=== PATIENT | male | born 1975 | race African-American/Black ===

== ENCOUNTER 2016-10-02 18:55 | Emergency (ER) | payer OTHER ==
[~2016-10-02] VITALS: Ht 185.4 cm; Wt 67.2 kg
[~2016-10-02 18:55] MED LIST: NOHOMEMEDS; PEN-VEE K,VEET500 MG PO; VITAMIN D2000 UNIT PO
[2016-10-02 19:03] VITALS: BP 114/80
[2016-10-02] MEDS ORDERED: PREDNISONE10 M1 PO (20:30)
[2016-10-02] MEDS ORDERED: MOBIC7.5 MG PO (20:30)
== END 2016-10-02 20:51 | disposition home or self-care (01) ==
LOC: RME 18:55 → EME 18:55 → RME 20:51
DX: M46.1 Sacroiliitis, not elsewhere classified (principal); Z88.0 Allergy status to penicillin
CPT/HCPCS: 99281; 99284; J1885

== ENCOUNTER → 2017-06-25 | Outpatient (CLI) | payer OTHER ==
[~2017-06-25] MED LIST changes: +FAMOTIDINE20 MG PO; +MEN'S MULTI-VI1 EACH PO; +MOBIC7.5 MG PO; +PREDNISONE10 M1 PO; +PREDNISONE20 MG PO; +TYLENOL REGULA325 MG PO
[2017-06-25 08:05] LABS: INTER. NORMALIZED RATIO 1.1
[2017-06-25 08:08] LABS: PTT 33.7 SEC (25-37)
== END | disposition home or self-care (01) ==
LOC: OPR 07:21 → EDSTATUS 08:00 → OPR 08:00
PROVIDERS: Nurse Practitioner Family
PROC: 07DJ3ZX Extraction of Left Inguinal Lymphatic, Percutaneous Approach, Diagnostic (ICD-10-PCS; principal; 2017-06-25)
DX: L92.8 Other granulomatous disorders of the skin and subcutaneous tissue (principal); R59.0 Localized enlarged lymph nodes; D72.819 Decreased white blood cell count, unspecified; E78.5 Hyperlipidemia, unspecified; M25.542 Pain in joints of left hand; Z88.0 Allergy status to penicillin; Z88.5 Allergy status to narcotic agent
CPT/HCPCS: 76942; 85610; 85730; 88305; 88312; J3010

== ENCOUNTER 2017-06-28 15:51 | Inpatient (IN) | payer OTHER ==
[~2017-06-28] VITALS: Ht 185.4 cm; Wt 67.5 kg
[~2017-06-28 15:51] MED LIST changes: -FAMOTIDINE20 MG PO; -MEN'S MULTI-VI1 EACH PO; -PREDNISONE20 MG PO; -TYLENOL REGULA325 MG PO
[2017-06-28 16:43] LABS: HEMOGLOBIN 13.8 G/DL (12.5-16.6); MCH 29.7 PG (29.0-34.0); MCHC 33.7 G/DL (30.0-36.0); MCV 88.4 FL (86-99); PLATELET COUNT 212 K/uL (156-360); RBC DIS.WIDTH-CV 12.5 % (11.8-14.6); RBC DIS.WIDTH-SD 40.5 % (39-53); RED BLOOD COUNT 4.64 M/uL (4.00-5.50); WHITE BLOOD COUNT 3.7 K/uL (4.1-10.2)
[2017-06-28 16:57] LABS: CHLORIDE 104 mEq/L (99-109); POTASSIUM 3.8 mEq/L (3.7-5.4); SODIUM 137 mEq/L (136-147)
[2017-06-28 16:59] LABS: GLUCOSE 98 mg/dL (70-99)
[2017-06-28 17:03] LABS: CREATININE 1.1 mg/dL (0.6-1.3); GFR ESTIMATE (CALCULATED) > 59 mL/min/ (58.99-99999)
[2017-06-28 17:04] LABS: UREA NITROGEN (BUN) 17 mg/dL (9-23)
[2017-06-28 17:11] LABS: TROP-I INTERPRETATION NEGATIVE; TROPONIN-I < 0.01 ng/mL (0.0-0.30)
[2017-06-28 18:51] LABS: C-REACTIVE PROTEIN 5.8 MG/L (0-10)
[2017-06-28 19:18] LABS: ERTH.SED.RATE 44 MM/HR (0-15)
[2017-06-28 20:26] LABS: BASOPHIL (%) 0.3 % (0-1); EOSINOPHIL (%) 3.8 % (0-5); EOSINOPHIL COUNT 0.1 K/uL (0-0.3); HEMATOCRIT 40.8 % (38.0-50.0); HEMOGLOBIN 13.7 G/DL (12.5-16.6); IMMATURE GRANULOCYTE (%) 0.3 % (0.0-0.7); LYMPHOCYTE (%) 23.4 % (15-42); LYMPHOCYTE COUNT 0.9 K/uL (1.0-2.8); MCH 29.9 PG (29.0-34.0); MCHC 33.6 G/DL (30.0-36.0); MCV 89.1 FL (86-99); MONOCYTE (%) 13.1 % (3-12); MONOCYTE COUNT 0.5 K/uL (0-0.8); NEUTROPHIL (%) 59.1 % (45-76); NEUTROPHIL COUNT 2.2 K/uL (1.8-6.4); PLATELET COUNT 204 K/uL (156-360); RBC DIS.WIDTH-CV 12.4 % (11.8-14.6); RBC DIS.WIDTH-SD 41.1 % (39-53); RED BLOOD COUNT 4.58 M/uL (4.00-5.50); WHITE BLOOD COUNT 3.7 K/uL (4.1-10.2)
[2017-06-28 20:49] LABS: TROP-I INTERPRETATION NEGATIVE; TROPONIN-I < 0.01 ng/mL (0.0-0.30)
[2017-06-28 23:10] LABS: TROP-I INTERPRETATION NEGATIVE; TROPONIN-I < 0.01 ng/mL (0.0-0.30)
[2017-06-29] VITALS (7 sets, daily range): BP systolic 92–128; BP diastolic 54–78
[2017-06-29 06:24] LABS: HEMATOCRIT 38.4 % (38.0-50.0); HEMOGLOBIN 12.5 G/DL (12.5-16.6); MCH 29.5 PG (29.0-34.0); MCHC 32.6 G/DL (30.0-36.0); MCV 90.6 FL (86-99); PLATELET COUNT 183 K/uL (156-360); RBC DIS.WIDTH-CV 12.6 % (11.8-14.6); RBC DIS.WIDTH-SD 41.8 % (39-53); RED BLOOD COUNT 4.24 M/uL (4.00-5.50); WHITE BLOOD COUNT 2.5 K/uL (4.1-10.2)
[2017-06-29 06:41] LABS: TROP-I INTERPRETATION NEGATIVE; TROPONIN-I < 0.01 ng/mL (0.0-0.30)
[2017-06-29 06:59] LABS: ALBUMIN 3.3 G/DL (3.2-4.8); ALKALINE PHOSPHATASE 49 IU/L (3-129); ALT (GPT) 12 IU/L (3-49); AST (GOT) 20 IU/L (2-34); CHLORIDE 106 MEQ/L (99-109); GFR ESTIMATE (CALCULATED) > 59 mL/min/ (58.99-99999); GLUCOSE 97 mg/dL (70-99); POTASSIUM 4.3 MEQ/L (3.7-5.4); SODIUM 141 MEQ/L (136-147); TOTAL BILIRUBIN 0.3 MG/DL (0.0-1.0); TOTAL PROTEIN 5.9 G/DL (6.4-8.3); UREA NITROGEN (BUN) 19 mg/dL (9-23)
[2017-06-29 10:00] LABS: BENZODIAZEPINES, URINE SCREEN Negative (200 ng/mL)
[2017-06-29 10:29] LABS: HIV-1/2 AB/AG COMBO Nonreactive
[2017-06-30 03:44] VITALS: BP 108/61
[2017-06-30 07:06] VITALS: BP 101/69
[2017-06-30] MEDS ORDERED: MEN'S MULTI-VI1 EACH PO (09:31)
[2017-06-30 15:10] VITALS: BP 107/66
[2017-06-30 23:49] VITALS: BP 105/59
[2017-07-01 06:13] LABS: HEMATOCRIT 38.9 % (38.0-50.0); HEMOGLOBIN 12.8 G/DL (12.5-16.6); MCH 29.3 PG (29.0-34.0); MCHC 32.9 G/DL (30.0-36.0); PLATELET COUNT 200 K/uL (156-360); RBC DIS.WIDTH-CV 12.4 % (11.8-14.6); RBC DIS.WIDTH-SD 40.4 % (39-53); RED BLOOD COUNT 4.37 M/uL (4.00-5.50); WHITE BLOOD COUNT 7.3 K/uL (4.1-10.2)
[2017-07-01 06:32] LABS: CHLORIDE 103 MEQ/L (99-109); CREATININE 0.8 MG/DL (0.6-1.3); GFR ESTIMATE (CALCULATED) > 59 mL/min/ (58.99-99999); GLUCOSE 112 mg/dL (70-99); POTASSIUM 4.1 MEQ/L (3.7-5.4); SODIUM 137 MEQ/L (136-147); UREA NITROGEN (BUN) 13 mg/dL (9-23)
[2017-07-01 08:01] VITALS: BP 116/72
[2017-07-01] MEDS ORDERED: TYLENOL REGULA325 MG PO (09:42)
[2017-07-01] MEDS ORDERED: FAMOTIDINE20 MG PO (09:42)
[2017-07-01] MEDS ORDERED: PREDNISONE20 MG PO (09:42)
[2017-07-01 13:48] LABS: Neutrophil Cytoplasmic Aby Negative (Negative)
[2017-07-01 14:56] LABS: IgG Subclass 4 (QD) 122.8 mg/dL (4.0-86.0)
[2017-07-03 14:00] LABS: Specimen Type Urine (())
== END 2017-07-01 11:23 | disposition home or self-care (01) | DRG 198 ==
LOC: EME 15:51 → 5SOUTH 21:20 → EDOF 21:20 → ENRESERV 21:22 → 5SOUTH 23:59
PROVIDERS: Internal Medicine; Physician Assistant
DX: D86.2 Sarcoidosis of lung with sarcoidosis of lymph nodes (principal); M19.90 Unspecified osteoarthritis, unspecified site; Z88.0 Allergy status to penicillin; Z88.5 Allergy status to narcotic agent
CPT/HCPCS: 71046; 71275; 76942; 80048; 80053; 80306 90; 82164 90; 82784 90; 82787 90; 83605; 84484; 85025; 85027; 85379; 85610; 85652; 85730; 86021 90; 86038; 86140; 86430; 86480 90; 87040; 87070; 87116; 87205; 87206; 87385 90; 87389; 88305; 88312; 93005; 93306; 94799; 99281; 99285; J1644; J1885; J1956; J3010; J7030; J7512